=== PATIENT | male | born 1955 | race Caucasian/White ===

== ENCOUNTER 2016-08-06 01:28 | Emergency (ER) | payer BC ==
[~2016-08-06] VITALS: Ht 167.6 cm; Wt 79.4 kg
[2016-08-06] MEDS ORDERED: FOLI5INJ2 PO (02:13)
[2016-08-06] MEDS ORDERED: FLOM5CAP PO (02:13)
[2016-08-06] MEDS ORDERED: BAYE325T12 PO (02:14)
[2016-08-06 02:30] LABS: BASO % 0.5 % (0.0-1.0); EOS # 0.1 K/mm3 (0.0-0.50); EOS % 1.6 % (0.0-3.0); LARGE UNSTAINED CELL # 0.1 K/mm3 (0.0-0.4); LARGE UNSTAINED CELL % 2.7 % (0.0-4.0); LYMPH % 39.5 % (24.0-44.0); MEAN CORPUSCULAR HGB CONC 34.3 g/dl (32.0-36.5); MEAN CORPUSCULAR VOLUME 99.1 fl (80.0-96.0); MONO # 0.5 K/mm3 (0.0-0.8); NEUTROPHILS # 2.3 K/mm3 (1.8-7.7); NEUTROPHILS % 45.7 % (36.0-66.0); RED CELL DISTRIBUTION WIDTH 12.3 % (11.5-14.5); WHITE BLOOD COUNT 5.1 K/mm3 (4.0-10.0)
[2016-08-06 02:38] LABS: PLATELET COUNT, AUTOMATED 95 k/mm3 (150-450)
[2016-08-06 02:45] LABS: ANION GAP 11 MEQ/L (8-16); BLOOD UREA NITROGEN 14 MG/DL (7-18); CALCIUM LEVEL 9.1 MG/DL (8.5-10.1); CARBON DIOXIDE LEVEL 28 MEQ/L (21-32); CHLORIDE LEVEL 98 MEQ/L (98-107); CREATININE FOR GFR 0.86 MG/DL (0.70-1.30); GLOMERULAR FILTRATION RATE > 60.0 (>56); GLUCOSE, FASTING 89 MG/DL (70-105); POTASSIUM SERUM 3.3 MEQ/L (3.5-5.1); SODIUM LEVEL 137 MEQ/L (136-145)
[2016-08-06] MEDS ORDERED: KETOROLAC 30 MG/ML VIAL (J1885) IV ONE (03:30)
[2016-08-06] MEDS ORDERED: POTASSIUM CHLORIDE 10 MEQ SR TABLET PO ONE (03:30)
[2016-08-06] MEDS ORDERED: NAPR500T PO (04:59)
[2016-08-06 05:00] VITALS: BP 109/77
--- NOTE | 2016-08-07 20:03 | ECGEPIP ---
Stationary ECG Study [facility] - ED Test Date: 2016-08-06 Pat Name: FRAN HARRIS Department: Room: - Gender: M Help Desk Supervisor: raheem : 1955 Requested By: PENG Gutierrez Order Number: [id number] Reading MD: Corrina Han Measurements Intervals [place] Rate: 86 P: 54 DC: 166 QRS: 30 QRSD: 94 T: 35 QT: 361 QTc: 433 Interpretive Statements SINUS RHYTHM WITH OCCASIONAL SUPRAVENTRICULAR PREMATURE COMPLEXES NO PRIOR FOR COMPARISON Electronically Signed On 08-07-2016 20:03:09 EDT by Corrina Han
== END 2016-08-06 05:19 | disposition home or self-care (01) ==
LOC: M ED 02:50
DX: R07.89 Other chest pain (principal); R06.02 Shortness of breath; Z79.899 Other long term (current) drug therapy; Z79.82 Long term (current) use of aspirin; J30.89 Other allergic rhinitis
CPT/HCPCS: 80048; 82550; 82553; 85025; 93005; 93041; 94760; 96374; 96375; 99285; J1885; J3360

== ENCOUNTER → 2016-11-10 | Outpatient (REF) | payer BC ==
[~2016-11-10] MED LIST: BAYE325T12 PO; FLOM5CAP PO; FOLI5INJ2 PO; NAPR500T PO
[2016-11-10 17:38] LABS: INR 0.92
== END ==
LOC: M LABDRAW1 15:40
PROVIDERS: ATTEND Physical Medicine & Rehabilitation
DX: Z01.818 Encounter for other preprocedural examination (principal); M48.06 Spinal stenosis, lumbar region

== ENCOUNTER → 2017-01-12 | Outpatient (REF) | payer BC ==
[2017-01-12 19:02] LABS: BLOOD UREA NITROGEN 4 MG/DL (7-18); CREATININE FOR GFR 0.74 MG/DL (0.70-1.30); GLOMERULAR FILTRATION RATE > 60.0 (>49)
[2017-01-16 00:06] LABS: ACETAMINOPHEN Negative ug/mL (10-30); AMITRIPTYLINE None Detected (Not Estab.); BUTALBITAL None Detected ug/mL (1-10); DESIPRAMINE None Detected (Not Estab.); DIAZEPAM None Detected ug/mL (0.1-0.9); DOXEPIN None Detected (Not Estab.); ETHANOL Negative % (0.000-0.010); NORCHLORDIAZEPOXIDE None Detected ug/mL (0.1-0.6); NORDIAZEPAM None Detected ug/mL (0.1-1.4); NORDOXEPIN None Detected (Not Estab.); NORTRIPTYLINE None Detected ng/mL (50-150); PENTOBARBITAL None Detected ug/mL (1-5); PHENOBARBITAL None Detected ug/mL (15-40); PHENYTOIN None Detected ug/mL (10.0-20.0)
== END ==
LOC: M LABDRAW1 13:19
PROVIDERS: ATTEND Physical Medicine & Rehabilitation
DX: M47.817 Spondylosis without myelopathy or radiculopathy, lumbosacral region (principal)
CPT/HCPCS: 36415; 82565; 84520; 84600; G0480

== ENCOUNTER → 2017-04-08 | Outpatient (REF) | payer BC | LOC: M LAB REF 15:45 | PROVIDERS: ATTEND Physical Medicine & Rehabilitation | DX: M51.36 Other intervertebral disc degeneration, lumbar region (principal) ==

== ENCOUNTER → 2018-05-11 | Outpatient (CLI) | payer BC ==
[~2018-05-11] MED LIST changes: +FLOM0.4C39 PO; -FLOM5CAP PO; +NAPR-50 PO; -NAPR500T PO
--- NOTE | 2018-05-11 08:27 | REP ---
Clinical: Lung screening. History smoking. Comparison: None Technique: Axial low-dose noncontrast images from the thoracic inlet to the upper abdomen using lung screening technique. Findings: The lung brown are well-aerated. Multiple healed bilateral rib fractures are identified along with areas of adjacent underlying pleuroparenchymal changes suggesting chronic scarring possibly related to the previous trauma. Minimal bibasilar bronchiectasis noted. No focal consolidation, significant nodule or mass lesion is appreciated. No pleural effusion or pneumothorax. Tracheobronchial tree is patent. Mediastinum demonstrates mild atherosclerotic changes of the coronary arteries without cardiomegaly. Impression: 1. Lung-RADS category I. No definite nodule or suspicious abnormality. 2. Changes including pleuroparenchymal scarring (left greater than right) likely related to prior trauma as multiple bilateral healed rib fractures are identified. Area of scarring in the left hemithorax demonstrates a subtle 11 mm area of density likely chronic and less likely active disease. In light of the lack of prior examinations, a 6-month follow-up chest CT may be warranted. Electronically Signed by Dewey Underwood MD 05/11/2018 08:18 A
== END ==
LOC: M RAD 07:39
PROVIDERS: ATTEND Family Medicine
DX: Z12.2 Encounter for screening for malignant neoplasm of respiratory organs (principal); F17.211 Nicotine dependence, cigarettes, in remission

== ENCOUNTER → 2018-07-20 | Outpatient (CLI) | payer BC ==
[~2018-07-20] MED LIST changes: +E-Z-GAS II EFFERVESCENT PACKET (SODIUM BICARB./CITRIC ACID/SIMETHICONE) As Ordered ONE; +E-Z-HD 98% w/w 340GM SUSP BTL As Ordered ONE; +E-Z-PAQUE 96% w/w SUSP 176GM BTL As Ordered ONE; +HYDR-3713 PO; +IBUP-1022 PO; +MULT1TAB10 PO; -NAPR-50 PO; +NAPR-837 PO; +TRAM50TA2 PO; +TYLETAB14 PO
--- NOTE | 2018-07-20 16:58 | REP ---
Esophagram The procedure was performed under the direct supervision of Dr. Das. The images were reviewed with Dr. Das. A single view PA chest x-ray is submitted as a collar turner operator film. The superior mediastinal structures are midline. The heart size is within normal limits. The lungs are clear. There are old healed rib fractures bilaterally. There is linear fibrosis in the upper and lower left lung zones. In the Liquid barium and gas producing granules were given in the erect position as well as liquid barium in the prone oblique positions in order to perform a double contrast esophagram examination. During the oral and pharyngeal stages of deglutition there is laryngeal penetration. There is cricopharyngeal hypertrophy. Esophageal transport is prompt and efficient and there is no esophagitis, stricture, or mucosal ring. There is a small hiatal hernia. Gastroesophageal reflux is not demonstrated on this examination. Impression: 1. There is laryngeal penetration. 2. Cricopharyngeal hypertrophy 3. There is a small hiatal hernia. 0.6 minutes of fluoro time was utilized for this procedure. Reviewed by MEY Blue 07/20/2018 04:41 P Electronically Signed by Rosalio Das MD 07/20/2018 04:49 P
== END ==
LOC: M RAD 09:59
PROVIDERS: ATTEND Internal Medicine Gastroenterology
DX: R13.12 Dysphagia, oropharyngeal phase (principal); K44.9 Diaphragmatic hernia without obstruction or gangrene; J39.2 Other diseases of pharynx

== ENCOUNTER 2018-07-29 06:34 | Day surgery (SDC) | payer BC ==
[~2018-07-29] VITALS: Ht 167.6 cm; Wt 77.1 kg
[~2018-07-29 06:34] MED LIST changes: -E-Z-GAS II EFFERVESCENT PACKET (SODIUM BICARB./CITRIC ACID/SIMETHICONE) As Ordered ONE; -E-Z-HD 98% w/w 340GM SUSP BTL As Ordered ONE; -E-Z-PAQUE 96% w/w SUSP 176GM BTL As Ordered ONE; +NS 1,000 ML IV ONE
--- NOTE | 2018-07-29 07:56 | ROOR ---
Patient Name: Lam Abrams Procedure Date: 07/29/2018 7:30 AM Date of : 1955 Age: 62 Room: [facility] Gender: Male Note Status: Finalized Procedure: Upper GI endoscopy Indications: Dysphagia Providers: Osorio GREENE MD Referring MD: Marilee Adler MD Requesting Provider: Medicines: Monitored Anesthesia Care Complications: No immediate complications. Procedure: Pre-Anesthesia Assessment: - The heart rate, respiratory rate, oxygen saturations, blood pressure, adequacy of pulmonary ventilation, and response to care were monitored throughout the procedure. The Endoscope was introduced through the mouth, and advanced to the second part of duodenum. The upper GI endoscopy was accomplished without difficulty. The patient tolerated the procedure well. Findings: Moderately severe esophagitis was found in the lower third of the esophagus. Biopsies were taken with a cold forceps for histology. A small area of extrinsic compression was found at the cricopharyngeus. The scope was withdrawn. Dilation was performed with a Gonzalez dilator with mild resistance at 54 Fr. Very small (insignificant) Hiatal Hernia. The entire examined stomach was normal. The examined duodenum was normal. Impression: - Moderately severe reflux esophagitis in the distal third of the esophagus. Rule out Schroeder's esophagus. Biopsied. - Extrinsic compression at the cricopharyngeus. Dilated. - Very small sliding Hiatal Hernia. - Normal stomach. - Normal examined duodenum. Recommendation: - Use Prilosec (omeprazole) 40 mg twice a day indefinitely. - Observe patient's clinical course.- I suspect your swallowing issue is mainly related to acid reflux. - Telephone endoscopist for pathology results in 2 weeks. - (the script was sent to your pharmacy on file) Osorio Greene MD Osorio GREENE MD 07/29/2018 7:56:13 AM Electronically signed by Osorio GREENE MD Number of Addenda: 0 Note Initiated On: 07/29/2018 7:30 AM Estimated Blood Loss: Estimated blood loss: none.
[2018-07-29] MEDS ORDERED: LIDOCAINE 2% INJ 100 MG/5 ML SDV (FOR ANES.) As Ordered ONE (08:03)
[2018-07-29] MEDS ORDERED: PROPOFOL 200 MG/20 ML VIAL As Ordered ONE (08:03)
[2018-07-29 08:12] VITALS: BP 125/83
== END 2018-07-29 08:34 | disposition home or self-care (01) ==
LOC: M OPP 06:34
PROVIDERS: ATTEND Internal Medicine Gastroenterology
DX: K21.0 Gastro-esophageal reflux disease with esophagitis (principal); K22.2 Esophageal obstruction; K44.9 Diaphragmatic hernia without obstruction or gangrene; R13.10 Dysphagia, unspecified

== ENCOUNTER → 2018-08-25 | Outpatient (REF) | payer BC ==
[~2018-08-25] MED LIST changes: -NS 1,000 ML IV ONE
[2018-08-25 12:16] LABS: BLOOD UREA NITROGEN 9 MG/DL (7-18); CREATININE FOR GFR 0.98 MG/DL (0.70-1.30); GLOMERULAR FILTRATION RATE > 60.0 (>49)
== END ==
LOC: M LABDRAW1 11:44
PROVIDERS: ATTEND Physician Assistant
DX: M51.36 Other intervertebral disc degeneration, lumbar region (principal)

== ENCOUNTER → 2019-01-27 | Outpatient (CLI) | payer BC ==
--- NOTE | 2019-01-27 16:50 | REP ---
CT chest without contrast: History: Abnormal chest x-ray. Comparison chest CT study May 11, 2018. Comparison chest radiograph July 20, 2018 and December 18, 2013. CT findings: Multiple healed posterolateral rib fractures are again noted bilaterally. Several of these on the left are not completely united. There is no evidence of hilar or mediastinal mass or adenopathy. No pleural or pericardial effusion is seen. No adrenal lesion is observed. The visualized upper abdominal structures are unremarkable. There is a small cyst in the left lobe of the liver. No extrathoracic mass or adenopathy is seen. No bony destructive lesion is seen. The lung parenchyma shows scattered areas of pleuroparenchymal fibrosis involving the lingula, left lower lobe, right lower lobe, and right upper lobe. These findings are unchanged from the comparison CT study and consistent with linear fibrosis. No significant pulmonary nodule or mass lesion is seen. No infiltrate is seen. Impression: Multiple old healed rib fractures bilaterally. Scattered areas of pleuroparenchymal fibrosis are seen bilaterally unchanged. No active cardiopulmonary disease seen. Electronically Signed by Rosalio Das MD 01/27/2019 04:56 P
== END ==
LOC: M RAD 14:46
PROVIDERS: ATTEND Family Medicine
DX: J84.10 Pulmonary fibrosis, unspecified (principal)

== ENCOUNTER 2019-03-30 12:18 | Day surgery (SDC) | payer BC ==
[~2019-03-30] VITALS: Ht 167.6 cm; Wt 86.6 kg
[~2019-03-30 12:18] MED LIST changes: +ALFU10TA3 PO; +ASPI-261 PO; +DIPH25CA32 PO; +OMEP-172 PO
[2019-03-30] MEDS ORDERED: PROPOFOL 200 MG/20 ML VIAL As Ordered ONE (13:04)
[2019-03-30] MEDS ORDERED: LIDOCAINE 2% INJ 100 MG/5 ML SDV (FOR ANES.) As Ordered ONE (13:04)
[2019-03-30] MEDS ORDERED: NS 1,000 ML IV ONE (14:00)
--- NOTE | 2019-03-30 14:31 | ROOR ---
Patient Name: Lam Abrams Procedure Date: 03/30/2019 2:11 PM Date of : 1955 Age: 63 Room: [facility] Gender: Male Note Status: Finalized Procedure: Upper GI endoscopy Indications: Dysphagia, Suspected esophageal reflux, Follow-up of Schroeder's esophagus Providers: Osorio GREENE MD Referring MD: Marilee Adler MD Requesting Provider: Medicines: Monitored Anesthesia Care Complications: No immediate complications. Procedure: Pre-Anesthesia Assessment: - The heart rate, respiratory rate, oxygen saturations, blood pressure, adequacy of pulmonary ventilation, and response to care were monitored throughout the procedure. The Endoscope was introduced through the mouth, and advanced to the second part of duodenum. The upper GI endoscopy was accomplished without difficulty. The patient tolerated the procedure well. Findings: One tongue of salmon-colored mucosa was present at 36 cm. No other visible abnormalities were present. The maximum longitudinal extent of these esophageal mucosal changes was 1 cm in length. Biopsies were taken with a cold forceps for histology. No endoscopic abnormality was evident in the esophagus to explain the patient's complaint of dysphagia. It was decided, however, to proceed with dilation of the entire esophagus. The scope was withdrawn. Dilation was performed with a Gonzalez dilator with mild resistance at 50 Fr. The dilation site was examined and showed no change. The entire examined stomach was normal. The examined duodenum was normal. Impression: - [place]-colored mucosa consistent with short-segment Schroeder's esophagus. Biopsied. - No endoscopic esophageal abnormality to explain patient's dysphagia. Esophagus dilated. Dilated. - Normal stomach. - Normal examined duodenum. Recommendation: - Continue present medications. - Repeat upper endoscopy in 3 years for surveillance. - Observe patient's clinical course. Osorio Greene MD Osorio GREENE MD 03/30/2019 2:30:46 PM Electronically signed by Osorio GREENE MD Number of Addenda: 0 Note Initiated On: 03/30/2019 2:11 PM Estimated Blood Loss: Estimated blood loss: none.
[2019-03-30 15:00] VITALS: BP 128/73
== END 2019-03-30 15:10 | disposition home or self-care (01) ==
LOC: M OPP 12:18
PROVIDERS: ATTEND Internal Medicine Gastroenterology
DX: K22.70 Barrett's esophagus without dysplasia (principal); R13.10 Dysphagia, unspecified; Z79.82 Long term (current) use of aspirin; Z79.899 Other long term (current) drug therapy; Z88.5 Allergy status to narcotic agent; Z87.891 Personal history of nicotine dependence

== ENCOUNTER → 2019-08-10 | Outpatient (CLI) | payer BC ==
[~2019-08-10] MED LIST changes: -OMEP-172 PO; +OMEP1CAP73 PO
== END ==
LOC: M LAB 08:16
PROVIDERS: ATTEND Physical Medicine & Rehabilitation
DX: M51.37 Other intervertebral disc degeneration, lumbosacral region (principal)

== ENCOUNTER → 2019-11-02 | Outpatient (CLI) | payer OTHER ==
[2019-11-02 11:27] LABS: PLATELET COUNT, AUTOMATED 264 10^3/uL (150-450)
[2019-11-02 11:38] LABS: INR 1.01
[2019-11-02 11:39] LABS: PARTIAL THROMBOPLASTIN TIME 27.6 SECONDS (25.0-38.4)
[2019-11-02 11:45] LABS: COLLAGEN EPINEPHRINE 102 SECONDS (74-162)
== END ==
LOC: M LAB 10:29
PROVIDERS: ATTEND Physical Medicine & Rehabilitation
DX: M47.897 Other spondylosis, lumbosacral region (principal)

== ENCOUNTER → 2019-12-27 | Outpatient (CLI) | payer OTHER, BC | LOC: M LABSMTC 10:19 | PROVIDERS: ATTEND Physical Medicine & Rehabilitation | DX: Z01.812 Encounter for preprocedural laboratory examination (principal) ==

== ENCOUNTER → 2020-06-11 | Outpatient (CLI) | payer BC ==
[~2020-06-11] MED LIST changes: -ASPI-261 PO; +ASPI-559 PO
--- NOTE | 2020-06-11 08:07 | REP ---
INDICATION: CIGARETTE NICOTINE DEPENDENCE. COMPARISON: Comparison chest CT studies are dated 27 January 2019 and 11 May 2018.. TECHNIQUE: Low-dose screening exam. Helical scanning, 3 mm axial slices are provided at lung only windows. FINDINGS: Digital preliminary edge sawyer radiograph is unremarkable. There are multiple old healed rib fractures on the left and there is pleuroparenchymal scarring in the left lower lobe unchanged. There is a 4 mm nodular opacity adjacent to a pulmonary vessel in the left lower lobe associated with the linear scarring. This is visible in retrospect and is felt to be unchanged. There is a new ground-glass opacity 4-5 mm nodule in the right upper lobe seen on page 29 of 108 series 201 today's study. This is not visible on either the prior studies. There are mild emphysematous changes. There are old healed rib fractures on the right as well. Some interstitial fibrosis is seen in both bases. IMPRESSION: New 5 mm ground-glass opacity nodule in the right upper lobe. Lung RADS category 3 findings. Six-month follow-up chest CT study suggested. <Electronically signed by Lee Das > 06/11/20 [id number]
== END ==
LOC: M RAD 07:05
PROVIDERS: ATTEND Family Medicine
DX: Z12.2 Encounter for screening for malignant neoplasm of respiratory organs (principal); F17.210 Nicotine dependence, cigarettes, uncomplicated; R91.1 Solitary pulmonary nodule

== ENCOUNTER → 2020-06-20 | Outpatient (CLI) | payer OTHER ==
[~2020-06-20] MED LIST changes: -ASPI-559 PO; +ASPI325T3 PO
[2020-06-20 10:44] LABS: BLOOD UREA NITROGEN 9 MG/DL (7-18); CREATININE FOR GFR 0.87 MG/DL (0.70-1.30); GLOMERULAR FILTRATION RATE > 60.0 (>49)
== END ==
LOC: M PLALAB 08:31
PROVIDERS: ATTEND Physician Assistant
DX: M47.817 Spondylosis without myelopathy or radiculopathy, lumbosacral region (principal)

== ENCOUNTER → 2020-09-30 | Outpatient (CLI) | payer OTHER ==
[2020-09-30 13:29] LABS: PLATELET COUNT, AUTOMATED 240 10^3/uL (150-450)
[2020-09-30 13:49] LABS: INR 0.92; PARTIAL THROMBOPLASTIN TIME 29.2 SECONDS (24.2-38.5); PROTHROMBIN TIME 12.5 SECONDS (12.5-14.3)
== END ==
LOC: M PLALAB 09:34
PROVIDERS: ATTEND Physical Medicine & Rehabilitation
DX: Z01.810 Encounter for preprocedural cardiovascular examination (principal)

== ENCOUNTER → 2020-12-11 | Outpatient (CLI) | payer BC ==
[~2020-12-11] MED LIST changes: +ASPI-584 PO; -ASPI325T3 PO; +ISOVUE-370 76% 100ML VIAL As Ordered ONE
--- NOTE | 2020-12-11 12:34 | REP ---
INDICATION: LUNG NODULE FOLLOW-UP 5 MM SIZED GROUND-GLASS OPACITY SEEN ON THE PRIOR EXAM OF 06/11/2020 IN THE RIGHT UPPER LOBE COMPARISON: Multiple the latest 06/11/2020 a low-dose screening CT of the lungs TECHNIQUE: Standard helical technique without intravenous contrast administration FINDINGS: There is no mediastinal or hilar adenopathy. There are no pleural or pericardial effusions. The imaged upper abdomen and imaged osseous structures are within normal limits. Evaluation of the lung brown shows complete resolution of the previously present 5 mm sized ground-glass nodule in the right upper lobe. The bilateral pleural based asymmetric density seen previously are all stable. No new abnormal nodules, masses, or opacities have developed. IMPRESSION: Lung rads category 2 exam. Follow-up as per the revised Fleischner society criteria. <Electronically signed by Frank Anaya > 12/11/20 [id number]
== END ==
LOC: M RAD 09:11
PROVIDERS: ATTEND Family Medicine
DX: Z87.09 Personal history of other diseases of the respiratory system (principal)
CPT/HCPCS: 71260; Q9967

== ENCOUNTER 2021-01-29 08:33 | Emergency (ER) | payer BC ==
[~2021-01-29] VITALS: Ht 167.6 cm; Wt 85.9 kg
[~2021-01-29 08:33] MED LIST changes: -ISOVUE-370 76% 100ML VIAL As Ordered ONE
[2021-01-29] MEDS ORDERED: CELE1CAP7 (08:43)
[2021-01-29] MEDS ORDERED: fentaNYL 100 MCG/2 ML INJECTION (J3010) IV ONE (11:20)
[2021-01-29] MEDS ORDERED: MORPHINE 4 MG/ML 1ML VIAL/SYRINGE (J2270) IV ONE (11:20)
[2021-01-29] MEDS ORDERED: NS 1,000 ML IV ONE (11:20)
[2021-01-29] MEDS ORDERED: ONDANSETRON 4MG/2ML VIAL IV ONE (11:20)
[2021-01-29] MEDS ORDERED: ISOVUE-370 76% 100ML VIAL As Ordered ONE (12:10)
[2021-01-29 12:20] LABS: BASO % 0.1 % (0.0-1.0); EOS % 0.1 % (0.0-3.0); HEMATOCRIT 45.8 % (42.0-52.0); HEMOGLOBIN 15.7 g/dl (13.5-17.5); LYMPH # 1.3 10^3/uL (1.5-5.0); LYMPH % 8.2 % (24.0-44.0); MEAN CORPUSCULAR HEMOGLOBIN 35.2 pg (27.0-33.0); MEAN CORPUSCULAR HGB CONC 34.3 g/dl (32.0-36.5); MEAN CORPUSCULAR VOLUME 102.7 fl (80.0-96.0); MONO % 11.7 % (2.0-8.0); NEUTROPHILS # 12.2 10^3/uL (1.5-8.5); NEUTROPHILS % 78.4 % (36.0-66.0); PLATELET COUNT, AUTOMATED 201 10^3/uL (150-450); RED BLOOD COUNT 4.46 10^6/uL (4.30-6.10); WHITE BLOOD COUNT 15.5 10^3/uL (4.0-10.0)
--- NOTE | 2021-01-29 12:31 | REP ---
INDICATION: rlq pain r/o appy. COMPARISON: None TECHNIQUE: Axial contrast-enhanced images from the lung bases to the pubic symphysis using 100 cc Isovue 370 intravenous contrast material. Coronal and sagittal reformations obtained. This CT examination was performed using the following dose reduction techniques: Automated exposure control, adjustment of mA and/or kv according to the patient's size, and the use of iterative reconstruction technique. FINDINGS: The gallbladder is distended with pericholecystic inflammatory stranding consistent with acute cholecystitis. Liver demonstrates few scattered small benign appearing cysts. Spleen includes 1 cm cyst/hemangioma. Pancreas, bilateral adrenal glands and kidneys are normal. The enteric system including stomach, small, and large bowel appears normal. No evidence for obstruction or acute inflammatory process. Normal terminal ileum and appendix are identified in the right lower quadrant. Scattered sigmoid diverticula noted without acute diverticulitis. Pelvis demonstrates normal bladder and mildly prominent prostate gland along with small fat containing inguinal hernias. No ascites. No free air. No intraperitoneal or retroperitoneal adenopathy. Abdominal aorta and vasculature appear normal. Musculoskeletal structures are intact and without acute osseous abnormality. IMPRESSION: 1. Findings consistent with acute cholecystitis. 2. Nonacute findings as described above. <Electronically signed by Dewey Underwood > 01/29/21 [id number]
[2021-01-29 12:43] LABS: MONO # 1.8 10^3/uL (0.0-0.8)
[2021-01-29 12:47] LABS: ALBUMIN 3.3 GM/DL (3.2-5.2); BILIRUBIN,DIRECT 0.6 MG/DL (0.0-0.2); BILIRUBIN,TOTAL 1.3 MG/DL (0.2-1.0); TOTAL PROTEIN 7.2 GM/DL (6.4-8.2)
[2021-01-29] MEDS ORDERED: cefTRIAXone SOD 1 GM in D5W MINI-BAG PLUS 50 ML IV ONE (13:30)
[2021-01-29] MEDS ORDERED: metroNIDAZOLE 500 MG in IV 1 EA IV ONE (13:30)
[2021-01-29] MEDS ORDERED: FLAG500T PO (14:22)
[2021-01-29] MEDS ORDERED: AUGM875T28 PO (14:22)
[2021-01-29 15:12] VITALS: BP 153/79
== END 2021-01-29 15:30 | disposition home or self-care (01) ==
LOC: M ED 08:33
DX: K81.0 Acute cholecystitis (principal); K21.9 Gastro-esophageal reflux disease without esophagitis; Z79.899 Other long term (current) drug therapy; J30.89 Other allergic rhinitis; Z88.5 Allergy status to narcotic agent
CPT/HCPCS: 74177; 80047; 80076; 83690; 85025; 96361; 96374; 96375; 99284; J0696; J2405; J3010; Q9967

== ENCOUNTER → 2021-03-01 | Outpatient (CLI) | payer BC ==
[~2021-03-01] MED LIST changes: +AUGM875T28 PO; +CELE1CAP7; +FLAG500T PO; +OMEP40CA4 PO; +[UNRECOGNIZED DRUG - REMARK]; +[UNRECOGNIZED DRUG - REMARK]
== END ==
LOC: M LABSMTC 10:05
PROVIDERS: ATTEND Anesthesiology
DX: Z01.812 Encounter for preprocedural laboratory examination (principal); Z20.822 Contact with and (suspected) exposure to COVID-19

== ENCOUNTER 2021-03-06 08:12 | Day surgery (SDC) | payer BC ==
[~2021-03-06] VITALS: Ht 167.6 cm; Wt 86.2 kg
[~2021-03-06 08:12] MED LIST changes: +AMPICILLIN SOD/SULBACTAM SOD 3 GM in D5W MINI-BAG PLUS 100 ML IV ONE; +CelecoXIB 400 MG CAP PO ONE; +INDOCYANINE GREEN 25MG VIAL (IC-GREEN) IV ONE; +LR 1,000 ML IV ONE
[2021-03-06] MEDS ORDERED: CELE1CAP7 PO (09:05)
[2021-03-06] MEDS ORDERED: ALFU10TA3 PO (09:05)
[2021-03-06] MEDS ORDERED: METOCLOPRAMIDE INJ 10MG/2ML VIAL (J2765 PER 1) As Ordered ONE (09:15)
[2021-03-06] MEDS ORDERED: fentaNYL 100 MCG/2 ML INJECTION (J3010) As Ordered ONE ×2 (09:15→10:57)
[2021-03-06] MEDS ORDERED: dexameTHASONE 4 MG/ML 1ML VIAL (J1100 PER 1MG) As Ordered ONE (09:15)
[2021-03-06] MEDS ORDERED: SUGAMMADEX SODIUM 500 MG/5 ML VIAL (BRIDION) As Ordered ONE (09:15)
[2021-03-06] MEDS ORDERED: LIDOCAINE 2% 100MG/5ML SDV (FOR ANES.) As Ordered ONE (09:15)
[2021-03-06] MEDS ORDERED: ONDANSETRON 4MG/2ML VIAL As Ordered ONE (09:15)
[2021-03-06] MEDS ORDERED: ROCURONIUM BROMIDE 50 MG/5 ML VIAL As Ordered ONE (09:15)
[2021-03-06] MEDS ORDERED: ACETAMINOPHEN 1000MG 100ML IV BTL (OFIRMEV) (J0131 PER 10MG) As Ordered ONE (09:15)
[2021-03-06] MEDS ORDERED: propofoL 200 MG/20 ML VIAL As Ordered ONE (09:15)
[2021-03-06] MEDS ORDERED: MIDAZOLAM INJ 2MG/2ML VIAL (J2250 PER 1MG) As Ordered ONE (09:16)
[2021-03-06] MEDS ORDERED: LIDOCAINE 1% SDV 30ML VIAL As Ordered ONE (09:26)
[2021-03-06] MEDS ORDERED: BUPIVACAINE HCL 0.25% 30ML VIAL As Ordered ONE (09:26)
[2021-03-06] MEDS ORDERED: LEVALBUTEROL 1.25 MG/0.5 ML CONCENTRATE NEB INH ONE (09:50)
[2021-03-06] MEDS ORDERED: LR 1,000 ML IV SCH (12:20)
[2021-03-06] MEDS ORDERED: ONDANSETRON 4MG/2ML VIAL IV PRN (12:20)
[2021-03-06] MEDS: fentaNYL 100 MCG/2 ML INJECTION (J3010) IV PRN ×4 (12:22→12:41)
[2021-03-06] MEDS ORDERED: PERCOCET 5MG/325MG TAB PO PRN ×2 (12:25)
[2021-03-06] MEDS ORDERED: KETOROLAC 30 MG/ML 1ML VIAL IV SCH (13:00)
[2021-03-06 13:06] VITALS: BP 144/89
--- NOTE | 2021-03-08 09:28 | ROOPDOC ---
[facility] Report Of Operation Report of Operation DATE OF PROCEDURE: 03/06/21 PREPROCEDURE DIAGNOSES: Cholelithiasis, history of acute cholecystitis. POSTPROCEDURE DIAGNOSES: Cholelithiasis, chronic cholecystitis. PROCEDURE PERFORMED: Robotic assisted laparoscopic cholecystectomy with use of ICG/firefly for biliary tract identification. SURGEON: Nazario Coe MD, PLASTIC BOAT PATCHER: MD ANESTHESIA: General endotracheal anesthesia. ESTIMATED BLOOD LOSS: Approximately 20 mL. COMPLICATIONS: None. REMARKS: Patient is a 65-year-old male who back in January was seen in the emergency room with severe right upper quadrant discomfort for a few days, found to have evidence for cholecystitis and acute cholecystitis. He was treated with oral antibiotics and short period of bowel rest with improvement of his symptoms and was later on sent to my clinic. He is brought in today for laparoscopic cholecystectomy. FINDINGS: Tensely distended, chronically thick-walled gallbladder. No evidence for acute swelling. Hydrops of the gallbladder. Enlarged cystic duct. Gallbladder does not illuminate on near infrared imaging/firefly. Very thick fat deposition at the hepatocystic triangle which made dissection difficult. After dissection of the triangle, and milking of the enlarged cystic duct, the cystic duct eventually illuminates on near infrared imaging. SPECIMENS REMOVED: Gallbladder PROCEDURE NOTE: . DESCRIPTION OF PROCEDURE: .Patient was given a dose of Levaquin 500 mg IV preoperatively. 2.5 mg of ICG was given IV in the preop area. He was brought to the operating room, laid supine on the table, compression boots placed for DVT prophylaxis. General endotracheal anesthesia started. His abdomen then prepped and draped in usual sterile fashion. Surgical timeout was performed prior to confirm right procedure, right patient identification and other necessary information prior to starting surgery. Entry into the abdomen done through an incision below and slightly to the left of the umbilical cleft. A Veress needle was inserted with a controlled fashion. CO2 insufflation started to pressure 15 mmHg. Using the same incision an 8 mm robotic trochar was placed under direct vision laparoscope. The area underneath the insertion site was inspected and no injury found. He was then placed on a 10 reverse Trendelenburg, tilted slightly towards the left side. Under direct vision I placed three more 8 mm trochars along a row level to the camera port site. A transversus abdominis plane block was then performed bilaterally using the lidocaine/marcaine mixture under laparoscopic guidance. 20 mLs of the mixture placed on each side. The da Tasneem robot tower was then maneuvered in place and the trochars docked to the robot. After positioning the instruments inside of the abdomen, and scrubbed in to control of the camera and robotic instruments at the surgeon's console while my assistant at surgery remains on the field. Operative findings: Liver is smooth appearing without any noticeable lesions on the surface. Gallbladder is contracted, moderately thick wall which is chronic. There is moderate amounts of fatty deposition to the hepatocystic triangle. I could make up a moderate-sized stone at the fundus of the gallbladder. On firefly, the liver lights up. The gallbladder does not light up. The common hepatic duct, common bile duct lights up, proximal cystic duct lights up but there is a cut off as it approaches the gallbladder at the proximal third of the cystic duct signifying persistent obstruction at the area.. The gallbladder is retracted superiorly to expose the neck of the gallbladder and hepatocystic triangle. Dissection was done with intermittent use of near infrared light and white light for identification of the relevant biliary ductal structures. The peritoneal covering at the neck of the gallbladder was opened up medially and laterally. The infundibulum is retracted laterally 1 approach to the hepatocystic triangle. The lymph node is identified there is moderate amount of fatty deposition at the hepatocystic triangle which was carefully dissected to expose the duct and artery. I started my hepatocystic triangle dissection. The course of the cystic artery was identified and this was circumferentially dissected. By switching between firefly mode and white light and dissected circumferentially the course of the infundibulum of the gallbladder as well as the cystic duct. The cystic artery and then the cystic duct was circumferentially dissected. The cystic plate at the lower body and neck of the gallbladder was cleared. Dissection performed until there is a critical view of safety achieved with only the cystic duct and artery as the only structures approaching the neck of the gallbladder and clearance of the lower body of the gallbladder from the cystic plate of the liver. (helped with illumination of the duct with firefly mode). I noted that the proximal cystic duct illuminates on firefly but there is a cut off signifying there is a persistent obstruction so I proceeded dissecting more proximally at the cystic duct and there is a stone lodged at the proximal third of the cystic duct. I dissected below this area. At this point the cystic artery was clipped twice and divided. The cystic duct was clipped twice on the down side and once the gallbladder side and this was divided in between the clips. Presence of the stone on the cystic duct confirmed. On firefly mode there was no bile leakage and I could see. The rest of the gallbladder dissected from the liver bed and detached. The gallbladder/liver bed is examined to ensure adequate hemostasis and again switching between the white light and firefly mode look for evidence for leakage and none was found. I scrubbed back in. We then switched to laparoscopy. The gallbladder was placed in an Endo Catch bag and retrieved through the umbilical port site which I did have to enlarge. The fascial defect at the umbilical port site was closed with 0 Vicryl using a Shawn Randle device in a mattress fashion. A 19 Zak drain was threaded through the rightmost lateral port and placed the gallbladder bed for postop monitoring. The abdomen was then deflated all ports removed. The skin incisions were closed with 4-0 Monocryl subcutaneous thickening fashion. The drain was secured to the skin with 2-0 silk. Patient is stable throughout the procedure. Dermabond was used for postoperative dressing. He was promptly a wakened, extubated and brought to recovery room in stable condition. Extraction: The gallbladder was extracted through the right most port site inside an Endo Catch bag with minimal enlargement of the tract. The fascia was closed with a running suture of 2 OV lock. The abdomen was then deflated all ports removed. The skin incisions were closed with 4-0 Monocryl subcutaneous thickening fashion. The drain was secured to the skin with 2-0 silk. Patient is stable throughout the procedure. Dermabond was used for postoperative dressing. He was promptly awakened, extubated and brought to recovery room in stable condition. NAZARIO COE MD Mar 08, 2021 09:28
== END 2021-03-06 14:20 | disposition home or self-care (01) ==
LOC: M SDC 08:12
PROVIDERS: ATTEND Surgery
DX: K81.2 Acute cholecystitis with chronic cholecystitis (principal); Z88.5 Allergy status to narcotic agent; K21.9 Gastro-esophageal reflux disease without esophagitis; J44.9 Chronic obstructive pulmonary disease, unspecified
CPT/HCPCS: 47563; 88304; J0131; J1100; J2250; J2405; J2765; J3010; Q9968; S2900

== ENCOUNTER 2021-04-06 10:31 | Emergency (ER) | payer BC ==
[~2021-04-06] VITALS: Ht 167.6 cm; Wt 85.7 kg
[~2021-04-06 10:31] MED LIST changes: -AMPICILLIN SOD/SULBACTAM SOD 3 GM in D5W MINI-BAG PLUS 100 ML IV ONE; +CELE1CAP7 PO; -CelecoXIB 400 MG CAP PO ONE; -INDOCYANINE GREEN 25MG VIAL (IC-GREEN) IV ONE; -LR 1,000 ML IV ONE
[2021-04-06 11:16] LABS: BASO % 0.3 % (0.0-1.0); EOS # 0.1 10^3/uL (0.0-0.5); EOS % 0.8 % (0.0-3.0); HEMATOCRIT 46.2 % (42.0-52.0); HEMOGLOBIN 15.3 g/dl (13.5-17.5); LYMPH # 2.1 10^3/uL (1.5-5.0); LYMPH % 19.1 % (24.0-44.0); MEAN CORPUSCULAR HEMOGLOBIN 33.2 pg (27.0-33.0); MEAN CORPUSCULAR HGB CONC 33.1 g/dl (32.0-36.5); MEAN CORPUSCULAR VOLUME 100.2 fl (80.0-96.0); MONO # 1.2 10^3/uL (0.0-0.8); MONO % 11.2 % (2.0-8.0); NEUTROPHILS # 7.4 10^3/uL (1.5-8.5); NEUTROPHILS % 68.3 % (36.0-66.0); PLATELET COUNT, AUTOMATED 229 10^3/uL (150-450); RED BLOOD COUNT 4.61 10^6/uL (4.30-6.10); WHITE BLOOD COUNT 10.9 10^3/uL (4.0-10.0)
[2021-04-06 11:37] LABS: ALBUMIN 3.9 GM/DL (3.2-5.2); BILIRUBIN,DIRECT 0.2 MG/DL (0.0-0.2); BILIRUBIN,TOTAL 0.7 MG/DL (0.2-1.0); TOTAL PROTEIN 7.7 GM/DL (6.4-8.2)
[2021-04-06] MEDS ORDERED: ISOVUE-370 76% 100ML VIAL As Ordered ONE (11:41)
--- NOTE | 2021-04-06 12:03 | REP ---
INDICATION: abdominal pain Left. COMPARISON: 01/29/2021 TECHNIQUE: Axial contrast-enhanced images from the lung bases to the pubic symphysis using 100 cc Isovue 370 intravenous contrast material. . This CT examination was performed using the following dose reduction techniques: Automated exposure control, adjustment of mA and/or kv according to the patient's size, and the use of iterative reconstruction technique. FINDINGS: Lung bases demonstrate chronic emphysematous changes and scattered scarring. Liver demonstrates mild fatty infiltration and few scattered benign cysts up to 1.6 cm. Spleen, pancreas, bilateral adrenal glands and kidneys are normal. Small incidental chronic simple renal cysts noted up to 1.1 cm. There is no evidence for bowel obstruction and normal terminal ileum, cecum and appendix are identified in the right lower quadrant. Colonic and sigmoid diverticulosis noted with findings to suggest early/mild sigmoid diverticulitis including mural thickening and very subtle pericolonic stranding. No obstruction. No perforation. No ascites or drainable collection/abscess. Pelvis demonstrates enlarged prostate gland with mass effect on the base of the bladder No ascites. No free air. No intraperitoneal or retroperitoneal adenopathy. Abdominal aorta and vasculature appear normal. Musculoskeletal structures are intact and without acute osseous abnormality. IMPRESSION: 1. Findings suggest early/mild sigmoid diverticulitis and correlation is recommended. No evidence for obstruction, perforation, ascites or drainable collection/abscess. 2. Nonacute findings as noted above remains stable. <Electronically signed by Dewey Underwood > 04/06/21 [id number]
[2021-04-06] MEDS ORDERED: AUGM875T28 PO (12:33)
[2021-04-06] MEDS ORDERED: AUGMENTIN 875 MG TAB PO ONE (12:40)
[2021-04-06] MEDS ORDERED: PERC5TAB12 PO ×4 (12:50→13:28)
[2021-04-06] MEDS ORDERED: PERCOCET 5MG/325MG TAB PO ONE (13:00)
[2021-04-06] MEDS ORDERED: diphenhydrAMINE 25MG CAP PO ONE (13:00)
[2021-04-06] MEDS ORDERED: OXYC1TAB23 PO (13:04)
[2021-04-06] MEDS ORDERED: BENA25CA4 PO (13:34)
[2021-04-06 13:49] VITALS: BP 125/67
== END 2021-04-06 13:52 | disposition home or self-care (01) ==
LOC: M ED 10:31
DX: K57.32 Diverticulitis of large intestine without perforation or abscess without bleeding (principal); M54.9 Dorsalgia, unspecified; K21.9 Gastro-esophageal reflux disease without esophagitis; N40.0 Benign prostatic hyperplasia without lower urinary tract symptoms; J44.9 Chronic obstructive pulmonary disease, unspecified; J30.89 Other allergic rhinitis; Z87.891 Personal history of nicotine dependence; Z79.899 Other long term (current) drug therapy; Z88.5 Allergy status to narcotic agent
CPT/HCPCS: 74177; 80047; 80076; 83605; 83690; 85025; 99284; Q9967

== ENCOUNTER → 2021-04-28 | Outpatient (CLI) | payer BC ==
[~2021-04-28] MED LIST changes: +BENA25CA4 PO; +OXYC1TAB23 PO; +PERC5TAB12 PO
== END ==
LOC: M LABSMTC 11:28
PROVIDERS: ATTEND Pediatrics
DX: Z11.52 Encounter for screening for COVID-19 (principal)
CPT/HCPCS: C9803; U0003

== ENCOUNTER → 2021-06-23 | Outpatient (CLI) | payer BC ==
[2021-06-23 11:26] LABS: ALBUMIN 3.9 GM/DL (3.2-5.2); ALT/SGPT 20 U/L (12-78); BILIRUBIN,TOTAL 0.4 MG/DL (0.2-1.0); BLOOD UREA NITROGEN 12 MG/DL (7-18); CALCIUM LEVEL 9.8 MG/DL (8.8-10.2); CARBON DIOXIDE LEVEL 30 MEQ/L (21-32); CHLORIDE LEVEL 105 MEQ/L (98-107); CHOLESTEROL LEVEL 161 MG/DL (<200); CHOLESTEROL RISK RATIO 3.577 (<5); CREATININE FOR GFR 0.82 MG/DL (0.70-1.30); GLOMERULAR FILTRATION RATE > 60.0 (>49); GLUCOSE, FASTING 92 MG/DL (70-100); HDL CHOLESTEROL 45 MG/DL (>40); LDL CHOLESTEROL 95 MG/DL (<100); NON-HDL-C 116 MG/DL; POTASSIUM SERUM 4.9 MEQ/L (3.5-5.1); SODIUM LEVEL 140 MEQ/L (136-145); TOTAL PROTEIN 7.2 GM/DL (6.4-8.2); TRIGLYCERIDES LEVEL 106 MG/DL (<150)
[2021-06-23 12:05] LABS: HEMOGLOBIN A1c 5.7 %
== END ==
LOC: M PLALAB 08:22
PROVIDERS: ATTEND Family Medicine
DX: N40.0 Benign prostatic hyperplasia without lower urinary tract symptoms (principal)
CPT/HCPCS: 36415; 80053; 80061; 83036; G0103

== ENCOUNTER → 2021-09-11 | Outpatient (CLI) | payer OTHER | LOC: M PLAIMG 12:51 | PROVIDERS: ATTEND Physician Assistant | DX: M47.26 Other spondylosis with radiculopathy, lumbar region (principal); M51.47 Schmorl's nodes, lumbosacral region; M51.26 Other intervertebral disc displacement, lumbar region; M51.36 Other intervertebral disc degeneration, lumbar region; G54.1 Lumbosacral plexus disorders ==

== ENCOUNTER → 2022-01-08 | Outpatient (CLI) | payer BC ==
[~2022-01-08] MED LIST changes: -ASPI-584 PO; +ASPI325T62 PO
== END ==
LOC: M RAD 16:49
PROVIDERS: ATTEND Physician Assistant
DX: Z12.2 Encounter for screening for malignant neoplasm of respiratory organs (principal); F17.211 Nicotine dependence, cigarettes, in remission; R91.8 Other nonspecific abnormal finding of lung field

== ENCOUNTER → 2022-02-04 | Outpatient (CLI) | payer BC ==
[~2022-02-04] MED LIST changes: +MELO7.5T35
== END ==
LOC: M LABSMTC 09:51
PROVIDERS: ATTEND Anesthesiology
DX: Z01.818 Encounter for other preprocedural examination (principal); Z11.52 Encounter for screening for COVID-19

== ENCOUNTER 2022-02-09 12:18 | Day surgery (SDC) | payer BC ==
[~2022-02-09] VITALS: Ht 167.6 cm; Wt 83.8 kg
[~2022-02-09 12:18] MED LIST changes: +NS 1,000 ML IV ONE
[2022-02-09] MEDS ORDERED: fentaNYL 100 MCG/2 ML INJECTION As Ordered ONE (13:07)
[2022-02-09] MEDS ORDERED: LIDOCAINE 2% 100MG/5ML SDV (FOR ANES.) As Ordered ONE (13:33)
[2022-02-09] MEDS ORDERED: propofoL 200 MG/20 ML VIAL As Ordered ONE (13:33)
[2022-02-09 13:39] VITALS: BP 124/81
== END 2022-02-09 13:51 | disposition home or self-care (01) ==
LOC: M OPP 12:18
PROVIDERS: ATTEND Internal Medicine Gastroenterology
DX: K22.70 Barrett's esophagus without dysplasia (principal); Z79.1 Long term (current) use of non-steroidal anti-inflammatories (NSAID); Z79.899 Other long term (current) drug therapy; J44.9 Chronic obstructive pulmonary disease, unspecified; N40.0 Benign prostatic hyperplasia without lower urinary tract symptoms; Z88.5 Allergy status to narcotic agent
CPT/HCPCS: 43239; 88305; J3010

== ENCOUNTER → 2022-04-27 | Outpatient (REF) | payer BC, OTHER ==
[~2022-04-27] MED LIST changes: +DIPH-435 PO; -DIPH25CA32 PO; -NS 1,000 ML IV ONE
[2022-04-27 12:59] LABS: BASO % 0.5 % (0.0-1.0); EOS # 0.2 10^3/uL (0.0-0.5); HEMATOCRIT 46.8 % (42.0-52.0); HEMOGLOBIN 15.4 g/dl (13.5-17.5); LYMPH # 2.2 10^3/uL (1.5-5.0); LYMPH % 28.3 % (24.0-44.0); MEAN CORPUSCULAR HEMOGLOBIN 32.8 pg (27.0-33.0); MEAN CORPUSCULAR HGB CONC 32.9 g/dl (32.0-36.5); MEAN CORPUSCULAR VOLUME 99.6 fl (80.0-96.0); MONO # 0.8 10^3/uL (0.0-0.8); MONO % 10.4 % (2.0-8.0); NEUTROPHILS # 4.6 10^3/uL (1.5-8.5); NEUTROPHILS % 58.5 % (36.0-66.0); PLATELET COUNT, AUTOMATED 206 10^3/uL (150-450); WHITE BLOOD COUNT 7.9 10^3/uL (4.0-10.0)
[2022-04-27 13:39] LABS: ALBUMIN 4.3 G/DL (3.2-5.2); ALKALINE PHOSPHATASE 76 U/L (46-116); ALT/SGPT 12 U/L (7.0-40); AST/SGOT 16 U/L (<34); BILIRUBIN,TOTAL 0.8 MG/DL (0.3-1.2); BLOOD UREA NITROGEN 13 MG/DL (9-23); CALCIUM LEVEL 9.8 MG/DL (8.3-10.6); CARBON DIOXIDE LEVEL 26 MMOL/L (20-31); CHLORIDE LEVEL 102 MMOL/L (98-107); CHOLESTEROL LEVEL 152 MG/DL (<200); CHOLESTEROL RISK RATIO 2.13 (<5); CREATININE FOR GFR 0.84 MG/DL (0.70-1.30); GLOMERULAR FILTRATION RATE > 60.0 (>49); GLUCOSE, FASTING 95 MG/DL (74-106); HDL CHOLESTEROL 71.3 MG/DL (>40); LDL CHOLESTEROL 65.1 MG/DL (<100); NON-HDL-C 81 MG/DL; POTASSIUM SERUM 4.6 MMOL/L (3.5-5.1); SODIUM LEVEL 139 MMOL/L (136-145); TOTAL PROTEIN 7.2 G/DL (5.7-8.2); TRIGLYCERIDES LEVEL 78 MG/DL (<150)
[2022-04-27 13:40] LABS: HEMOGLOBIN A1c 4.9 % (4.0-6.0)
== END ==
LOC: M SFHCADAM 08:33
PROVIDERS: ATTEND Physician Assistant
DX: N40.0 Benign prostatic hyperplasia without lower urinary tract symptoms (principal); Z86.010 Personal history of colon polyps; Z68.32 Body mass index [BMI] 32.0-32.9, adult
CPT/HCPCS: 80053; 80061; 83036; 85025; G0103

== ENCOUNTER → 2023-06-08 | Outpatient (CLI) | payer BC ==
[~2023-06-08] MED LIST changes: -CELE1CAP7; -CELE1CAP7 PO; +CELE1CAP99; +CELE1CAP99 PO
== END ==
LOC: M RAD 06:26
PROVIDERS: ATTEND Physician Assistant
DX: Z12.2 Encounter for screening for malignant neoplasm of respiratory organs (principal); F17.211 Nicotine dependence, cigarettes, in remission; I25.10 Atherosclerotic heart disease of native coronary artery without angina pectoris; K76.9 Liver disease, unspecified

== ENCOUNTER 2023-10-18 14:44 | Emergency (ER) | payer OTHER, MEDICARE, BC ==
[~2023-10-18] VITALS: Ht 167.6 cm; Wt 86.3 kg
[~2023-10-18 14:44] MED LIST changes: +ACET1TAB55 PO; +ALFU10TA23 PO; -ALFU10TA3 PO; -ASPI325T62 PO; +BAYE325T PO; +BAYE500T2 PO; +MELO15TA28 PO
[2023-10-18 15:25] LABS: BASO % 0.3 % (0.0-1.0); EOS % 0.4 % (0.0-3.0); HEMATOCRIT 41.6 % (42.0-52.0); HEMOGLOBIN 14.4 g/dl (13.5-17.5); LYMPH # 1.8 10^3/uL (1.5-5.0); LYMPH % 19.2 % (24.0-44.0); MEAN CORPUSCULAR HGB CONC 34.6 g/dl (32.0-36.5); MEAN CORPUSCULAR VOLUME 98.1 fl (80.0-96.0); MONO # 1.6 10^3/uL (0.0-0.8); MONO % 17.1 % (2.0-8.0); NEUTROPHILS # 5.9 10^3/uL (1.5-8.5); NEUTROPHILS % 62.8 % (36.0-66.0); PLATELET COUNT, AUTOMATED 210 10^3/uL (150-450); RED BLOOD COUNT 4.24 10^6/uL (4.30-6.10); WHITE BLOOD COUNT 9.3 10^3/uL (4.0-10.0)
[2023-10-18 15:46] LABS: ALBUMIN 3.5 G/DL (3.2-5.2); ALKALINE PHOSPHATASE 62 U/L (46-116); ALT/SGPT 18 U/L (7.0-40); AST/SGOT 16 U/L (<34); BILIRUBIN,DIRECT 0.1 MG/DL (<0.4); BILIRUBIN,TOTAL 0.3 MG/DL (0.3-1.2); BLOOD UREA NITROGEN 10 MG/DL (9-23); CALCIUM LEVEL 9.1 MG/DL (8.3-10.6); CARBON DIOXIDE LEVEL 21 MMOL/L (20-31); CHLORIDE LEVEL 99 MMOL/L (98-107); CREATININE FOR GFR 1.15 MG/DL (0.70-1.30); GLOMERULAR FILTRATION RATE > 60.0 (>49); GLUCOSE, FASTING 130 MG/DL (74-106); POTASSIUM SERUM 3.8 MMOL/L (3.5-5.1); SODIUM LEVEL 133 MMOL/L (136-145); TOTAL PROTEIN 6.7 G/DL (5.7-8.2)
[2023-10-18 17:00] VITALS: BP 107/61; O2SAT 92
[2023-10-18 17:56] VITALS: O2SAT 96
[2023-10-18] MEDS ORDERED: ZITHTAB PO (18:03)
[2023-10-18] MEDS ORDERED: AMOX875T2 PO (18:03)
[2023-10-18 18:37] VITALS: TEMP 98
== END 2023-10-18 18:41 | disposition home or self-care (01) ==
LOC: M ED 14:44
DX: J18.9 Pneumonia, unspecified organism (principal); K21.9 Gastro-esophageal reflux disease without esophagitis; M54.50 Low back pain, unspecified; N40.0 Benign prostatic hyperplasia without lower urinary tract symptoms; J30.89 Other allergic rhinitis; Z79.82 Long term (current) use of aspirin; Z79.899 Other long term (current) drug therapy; Z88.5 Allergy status to narcotic agent

== ENCOUNTER → 2024-01-26 | Outpatient (REF) | payer MEDICARE, BC ==
[~2024-01-26] MED LIST changes: +AMOX875T2 PO; +ZITHTAB PO
== END ==
LOC: M SFHCADAM 08:37
PROVIDERS: ATTEND Physician Assistant
DX: N40.0 Benign prostatic hyperplasia without lower urinary tract symptoms (principal); Z12.5 Encounter for screening for malignant neoplasm of prostate

== ENCOUNTER → 2024-07-07 | Outpatient (CLI) | payer MEDICARE, BC ==
[~2024-07-07] MED LIST changes: -BAYE325T12 PO; +BAYE325T2 PO
== END ==
LOC: M RAD 09:46
PROVIDERS: ATTEND Physician Assistant
DX: J98.11 Atelectasis (principal); J98.4 Other disorders of lung; F17.211 Nicotine dependence, cigarettes, in remission

== ENCOUNTER → 2024-08-07 | Outpatient (CLI) | payer OTHER, MEDICARE | LOC: M PLAIMG 12:16 | PROVIDERS: ATTEND Physician Assistant | DX: M47.896 Other spondylosis, lumbar region (principal); M54.16 Radiculopathy, lumbar region ==

== ENCOUNTER → 2025-01-11 | Outpatient (CLI) | payer MEDICARE, BC ==
[~2025-01-11] MED LIST changes: -FLOM0.4C39 PO; -IBUP-1022 PO; +IBUP600T42 PO; +TAMS-18 PO
[2025-01-11 10:52] LABS: CPK CREATINE PHOSPHOKINASE 68.0 U/L (46-171)
[2025-01-11 11:28] LABS: ALT/SGPT 40.0 U/L (7.0-40); CHOLESTEROL LEVEL 195.0 MG/DL (<200); CHOLESTEROL RISK RATIO 1.77 (<5); LDL CHOLESTEROL 78.4 MG/DL (<100); NON-HDL-C 85.2 MG/DL; TRIGLYCERIDES LEVEL 34.0 MG/DL (<150)
[2025-01-11 19:50] LABS: AST/SGOT 58.0 U/L (<34)
== END ==
LOC: M PLALAB 08:15
PROVIDERS: ATTEND Internal Medicine Cardiovascular Disease
DX: I25.119 Atherosclerotic heart disease of native coronary artery with unspecified angina pectoris (principal)

== ENCOUNTER → 2025-02-05 | Outpatient (CLI) | payer MEDICARE, BC ==
[2025-02-05 17:04] LABS: BASO # 0.1 10^3/uL (0.0-0.2); BASO % 0.5 % (0.0-1.0); EOS # 0.1 10^3/uL (0.0-0.5); EOS % 1.5 % (0.0-3.0); LYMPH # 3.1 10^3/uL (1.5-5.0); LYMPH % 33.7 % (24.0-44.0); MONO # 1.1 10^3/uL (0.0-0.8); MONO % 11.8 % (2.0-8.0); NEUTROPHILS # 4.8 10^3/uL (1.5-8.5); NEUTROPHILS % 52.3 % (36.0-66.0); PLATELET COUNT, AUTOMATED 195 10^3/uL (150-450)
[2025-02-05 17:19] LABS: INR 0.92
[2025-02-05 17:27] LABS: ALT/SGPT 79.0 U/L (7.0-40); AST/SGOT 74.0 U/L (<34); CALCIUM LEVEL 10.2 MG/DL (8.3-10.6); CARBON DIOXIDE LEVEL 28.0 MMOL/L (20-31); CHLORIDE LEVEL 96.0 MMOL/L (98-107); CREATININE FOR GFR 1.01 MG/DL (0.70-1.30); GLOMERULAR FILTRATION RATE 81.0 (>49); IRON (FE) 103.0 UG/DL (65-175); PERCENT SATURATION 31.5 % (19.7-50.0); POTASSIUM SERUM 4.3 MMOL/L (3.5-5.1); SODIUM LEVEL 137.0 MMOL/L (136-145)
== END ==
LOC: M LABDRWAD 14:18
PROVIDERS: ATTEND Orthopaedic Surgery
DX: Z01.812 Encounter for preprocedural laboratory examination (principal); D68.9 Coagulation defect, unspecified; M25.559 Pain in unspecified hip; D63.8 Anemia in other chronic diseases classified elsewhere; M16.9 Osteoarthritis of hip, unspecified

== ENCOUNTER → 2025-02-06 | Outpatient (REF) | payer MEDICARE, BC | LOC: M SFHCADAM 11:55 | PROVIDERS: ATTEND Physician Assistant | DX: D64.9 Anemia, unspecified (principal) ==

== ENCOUNTER → 2025-03-12 | Outpatient (CLI) | payer MEDICARE, BC | LOC: M RAD 10:58 | PROVIDERS: ATTEND Physician Assistant | DX: M79.605 Pain in left leg (principal); M79.89 Other specified soft tissue disorders ==